=== PATIENT | female | born 1970 | race Caucasian/White ===

== ENCOUNTER → 2016-04-07 | Outpatient (CLI) | payer BC ==
[2014-09-17 07:00] VITALS: BP 119/72
[~2016-04-07] MED LIST: Fentanyl TD; LACT1CAP29 PO; LEVO50TA5 PO; LORA0.5T96 PO; Mouthwash PO; NAPR220T70 PO; NAPR550T2 PO; OMEP40CA5 PO; ONDA8TAB9 PO; OXYC-323 PO; PILO5TAB PO; [UNRECOGNIZED DRUG - CODE] PO; decadron
--- NOTE | 2016-04-07 16:43 | KCIC ---
PROCEDURE MRI right knee without contrast dated 04/07/2016. HISTORY Right knee pain and swelling for 2 months. TECHNIQUE Routine multiplanar multisequence MR imaging performed. COMPARISON none FINDINGS Mild tricompartmental hypertrophic change with thinning and surface irregularity of the articular cartilage throughout. Near full-thickness cartilage loss of the weightbearing surfaces medial femoral condyle and medial tibial plateau. Moderate cartilage thinning over the medial patellar facet and patellar apex. Moderate-sized joint effusion. No intra-articular loose body. No significant popliteal cyst. Anterior cruciate and posterior cruciate ligaments are intact. Medial and lateral collateral complexes are intact. Iliotibial band, popliteus tendon and pes anserine complex within normal limits. Quadriceps and patellar tendon are intact. Mild increased signal in the substance of the proximal and distal patellar tendon. Mild patchy prepatellar and superficial infrapatellar edema. No abnormality of the medial or lateral retinaculum. Focal free edge radial defects at the posterior horn medial meniscus, near the meniscal root and posterior horn/body junction. Medial meniscal body is slightly extruded and the medial gutter. Anterior horn is intact. Lateral meniscus is normal in morphology and signal. IMPRESSION - Free edge radial tearing posterior horn and body of medial meniscus. - Mild tricompartmental degenerative arthrosis and chondromalacia. There is near full thickness cartilage loss at the anterior and medial compartments. - Moderate size joint effusion. - Mild patellar tendinosis. - Intact cruciate and collateral ligaments. Electronically signed by: Connor Philip (Apr 07, 2016 16:42:20)
== END | disposition home or self-care (01) ==
LOC: KCIC MRI 15:41
DX: S83.241A Other tear of medial meniscus, current injury, right knee, initial encounter (principal); M17.11 Unilateral primary osteoarthritis, right knee; M94.261 Chondromalacia, right knee; M25.461 Effusion, right knee; M76.51 Patellar tendinitis, right knee; X58.XXXA Exposure to other specified factors, initial encounter; Y93.89 Activity, other specified; Y92.89 Other specified places as the place of occurrence of the external cause; Y99.8 Other external cause status
CPT/HCPCS: 73721

== ENCOUNTER → 2016-05-07 | Outpatient (CLI) | payer BC ==
[2014-09-17 07:00] VITALS: BP 119/72
[~2016-05-07] MED LIST changes: +MAG DELAY64 MG PO; -[UNRECOGNIZED DRUG - CODE] PO
[2016-05-07] MEDS: IOHEXOL 300 MG/ML 100ML VIAL. IV ONE (15:48)
--- NOTE | 2016-05-07 16:57 | KCIC ---
Examination: CT soft tissue neck with IV contrast. HISTORY History of tonsillar cancer, status post treatment. COMPARISON 12/20/2015. TECHNIQUE Axial CT images without tissue neck were performed with IV contrast. Coronal and sagittal reformats were performed Exposure: One or more of the following dose reduction technique were utilized for this examination: 1. Automated exposure control. 2.Adjustment of MA and /or KV according to patient size. 3. Use of iterative reconstruction technique. Findings: The visualized parapharyngeal spaces, dining room tables set up attendant spaces, parotid glands grossly appears unremarkable. No obvious mass identified in the region of the tonsils. The piriform sinuses, vallecula grossly appears unremarkable. The vocal cords grossly appears unremarkable.The visualized thyroid gland grossly appears unremarkable. No radiologically significant cervical lymphadenopathy identified. The right submandibular lymph node measuring 9 millimeters transverse dimension is similar to prior exam. The visualized apical lungs grossly appears unremarkable. No evidence of lytic bony destructive lesion identified. IMPRESSION No definite evidence of mass identified in the tonsillar region. No new obvious radiologically significant cervical lymphadenopathy identified. The previously visualized right submandibular lymph node measuring 9 millimeters in transverse dimension is similar to prior exam. Electronically signed by: Clayton Centeno (May 07, 2016 16:56:02)
== END | disposition home or self-care (01) ==
LOC: KCIC CT 15:14
PROVIDERS: ATTEND Radiology Radiation Oncology
DX: C09.9 Malignant neoplasm of tonsil, unspecified (principal)
CPT/HCPCS: 70491; Q9967

== ENCOUNTER → 2016-09-08 | Outpatient (CLI) | payer BC ==
[2014-09-17 07:00] VITALS: BP 119/72
[~2016-09-08] MED LIST changes: +NAPR-677 PO; -NAPR550T2 PO; -PILO5TAB PO; +PILO5TAB16 PO
--- NOTE | 2016-09-08 13:43 | KCIC ---
Bilateral digital screening mammograms: Reason for examination: Routine screening. Comparison is made to previous studies dated 06/27/2015 and 05/08/2014. The skin and nipples show no abnormalities. No abnormal lymph nodes are seen. The breast parenchyma is predominantly fatty. (Breast density: Category A.) There are no dominant masses, suspicious calcifications or architectural distortions. Impression: No evidence of malignancy. Recommend routine screening. BI-RADS Category 1: Negative. "Our facility is accredited by the [employer] Mammography [employer]." This patient's information has been entered into a reminder system for the patient to be notified with the results of her examination and a target date for the next mammogram. Electronically signed by: Julia Gandara MD (09/08/2016 1:39 PM)
== END | disposition home or self-care (01) ==
LOC: KCIC MAMMO 08:16
PROVIDERS: ATTEND Obstetrics & Gynecology
DX: Z12.31 Encounter for screening mammogram for malignant neoplasm of breast (principal)
CPT/HCPCS: G0202; 77067

== ENCOUNTER → 2016-09-08 | Outpatient (CLI) | payer BC ==
[2014-09-17 07:00] VITALS: BP 119/72
[~2016-09-08] MED LIST changes: +CONTRAST GIVEN MC PRN; +IOHEXOL 300 MG/ML 100ML VIAL. IV ONE
--- NOTE | 2016-09-08 09:36 | KCIC ---
CT SOFT TISSUE NECK W/CONTRAST dated 09/08/2016 8:30 AM Indication: Tonsillar cancer Comparison: 05/07/2016 and December 20, 2015 Technique: After bolus of intravenous contrast, CT imaging was performed of the neck. Multiplanar reconstruction images are submitted. One or more of the following individualized dose reduction techniques were utilized for this examination: 1. Automated exposure control 2. Adjustment of the mA and/or kV according to patient size 3. Use of iterative reconstruction technique. Contrast: 95 cc Omnipaque 300 Findings: No discrete tonsillar mass is identified by CT. Epiglottis is not thickened. There is preservation of parapharyngeal fat planes. No new significantly enlarged or necrotic nodes are identified of the neck. Right submandibular node on the order of 0.7 cm cm short axis dimension is similar. There is no asymmetry identified of the true or false cords. Paranasal sinuses and mastoid air cells are overall aerated. IMPRESSION: 1. No discrete tonsillar mass is identified by this exam. No significantly enlarged or necrotic nodes are identified of the neck. Electronically signed by: Elio Estevez MD (09/08/2016 9:32 AM)
== END | disposition home or self-care (01) ==
LOC: KCIC CT 08:22
PROVIDERS: ATTEND Radiology Radiation Oncology
DX: C09.0 Malignant neoplasm of tonsillar fossa (principal)
CPT/HCPCS: 70491; Q9967

== ENCOUNTER → 2017-04-02 | Outpatient (CLI) | payer BC ==
[2017-04-02] MEDS: IOHEXOL 300 MG/ML 100ML VIAL. IV (15:09)
== END | disposition home or self-care (01) ==
LOC: KCIC CT 14:48
DX: C09.9 Malignant neoplasm of tonsil, unspecified (principal); Z92.3 Personal history of irradiation; Z92.21 Personal history of antineoplastic chemotherapy
CPT/HCPCS: 70491; Q9967

== ENCOUNTER → 2017-09-23 | Outpatient (CLI) | payer BC | END | disposition home or self-care (01) | LOC: KCIC MAMMO 12:00 | DX: Z12.31 Encounter for screening mammogram for malignant neoplasm of breast (principal); E03.9 Hypothyroidism, unspecified; E66.9 Obesity, unspecified | CPT/HCPCS: 77067 ==

== ENCOUNTER → 2017-10-05 | Outpatient (CLI) | payer BC ==
[2017-10-05] MEDS: IOHEXOL 300 MG/ML 100ML VIAL. IV (08:56)
== END | disposition home or self-care (01) ==
LOC: KCIC CT 07:56
DX: C09.0 Malignant neoplasm of tonsillar fossa (principal); M47.892 Other spondylosis, cervical region; E03.9 Hypothyroidism, unspecified; Z85.72 Personal history of non-Hodgkin lymphomas; Z87.891 Personal history of nicotine dependence
CPT/HCPCS: 70491; Q9967

== ENCOUNTER → 2018-04-18 | Outpatient (CLI) | payer BC ==
[2014-09-17 07:00] VITALS: BP 119/72
[~2018-04-18] MED LIST changes: +BUSP15TA PO; -CONTRAST GIVEN MC PRN; -OXYC-323 PO; +OXYC1TAB15 PO; +RANI150T21 PO
--- NOTE | 2018-04-18 16:00 | KCIC ---
CT neck with contrast 04/18/2018 CLINICAL INDICATION: Tonsillar carcinoma, follow-up status post treatment. COMPARISON: CT neck 10/05/2016 TECHNIQUE: Multiple CT images of the neck were obtained following the intravenous administration of 95 mL Omnipaque 300. *One or more of the following individualized dose reduction techniques were utilized for this examination: 1. Automated exposure control. 2. Adjustment of the mA and/or kV according to patient size. 3. Use of iterative reconstruction technique. FINDINGS: The visualized intracranial structures, globes and orbits are unremarkable. The nasal cavity, nasopharynx, hypopharynx and larynx are unremarkable. The parotid, submandibular and thyroid glands are normal in appearance. The parapharyngeal fat is preserved. No cervical lymphadenopathy by CT size criteria. There are no destructive osseous lesions. IMPRESSION: No evidence of recurrent cervical mass or lymphadenopathy. Electronically signed by: Will Ochoa MD (04/18/2018 3:56 PM) [facility]
== END | disposition home or self-care (01) ==
LOC: KCIC CT 14:43
PROVIDERS: ATTEND Radiology Radiation Oncology
DX: Z08 Encounter for follow-up examination after completed treatment for malignant neoplasm (principal); Z85.818 Personal history of malignant neoplasm of other sites of lip, oral cavity, and pharynx
CPT/HCPCS: 70491; Q9967

== ENCOUNTER → 2018-10-13 | Outpatient (CLI) | payer BC ==
[2014-09-17 07:00] VITALS: BP 119/72
[~2018-10-13] MED LIST changes: -IOHEXOL 300 MG/ML 100ML VIAL. IV ONE; +RANI-376 PO; -RANI150T21 PO
--- NOTE | 2018-10-13 17:02 | KCIC ---
Bilateral digital screening mammograms: Reason for examination: Routine screening. Comparison is made to previous studies dated 09/23/2017 and 09/08/2016. Interpretation is made with the benefit of CAD. The skin and nipples show no abnormalities. No abnormal lymph nodes are seen. The breast parenchyma is predominantly fatty. (Breast density: Category A.) There are no dominant masses, suspicious calcifications or architectural distortions. Impression: No evidence of malignancy. Recommend routine screening. BI-RADS Category 1: Negative. "Our facility is accredited by the [employer] Mammography Program." This patient's information has been entered into a reminder system for the patient to be notified with the results of her examination and a target date for the next mammogram. Electronically signed by: Julia Gandara MD (10/13/2018 4:59 PM) [id number]
== END | disposition home or self-care (01) ==
LOC: KCIC MAMMO 15:40
PROVIDERS: ATTEND Obstetrics & Gynecology
DX: Z12.31 Encounter for screening mammogram for malignant neoplasm of breast (principal)
CPT/HCPCS: 77067

== ENCOUNTER → 2018-11-10 | Outpatient (CLI) | payer BC ==
[2014-09-17 07:00] VITALS: BP 119/72
[~2018-11-10] MED LIST changes: +ANTI-COAG MONITOR BY PHARMACY. MC PRN; +CONTRAST GIVEN. MC PRN; +IOHEXOL 300 MG/ML 100ML VIAL. IV ONE
--- NOTE | 2018-11-10 16:48 | RAD ---
CT SOFT TISSUE NECK W/CONTRAST Indication: Tonsillar cancer Technique: Postcontrast CT imaging was performed of the neck, multiplanar reconstruction images submitted. One or more of the following individualized dose reduction techniques were utilized for this examination: 1. Automated exposure control 2. Adjustment of the mA and/or kV according to patient size 3. Use of iterative reconstruction technique. Comparison: April 02, 2017 Findings: No new suspicious mass, fluid collection, lymphadenopathy is identified. Submandibular glands and parotid glands are unchanged in appearance. There is preservation of the parapharyngeal fat planes. There is no new focal abnormality identified of the tonsils, epiglottis, aryepiglottic folds, true or false cords, lung apices. There is degenerative disc disease and spondylosis C6-7. IMPRESSION: 1. No new abnormality is identified, no CT evidence of disease recurrence. Electronically signed by: Elio Estevez MD (11/10/2018 4:45 PM) [id number]
== END | disposition home or self-care (01) ==
LOC: KCIC CT 14:58
PROVIDERS: ATTEND Radiology Radiation Oncology
DX: C09.0 Malignant neoplasm of tonsillar fossa (principal); C77.0 Secondary and unspecified malignant neoplasm of lymph nodes of head, face and neck; M50.323 Other cervical disc degeneration at C6-C7 level; M47.812 Spondylosis without myelopathy or radiculopathy, cervical region
CPT/HCPCS: 70491; Q9967

== ENCOUNTER → 2018-11-28 | Outpatient (CLI) | payer BC ==
[2014-09-17 07:00] VITALS: BP 119/72
[~2018-11-28] MED LIST changes: -ANTI-COAG MONITOR BY PHARMACY. MC PRN; -CONTRAST GIVEN. MC PRN; -IOHEXOL 300 MG/ML 100ML VIAL. IV ONE
--- NOTE | 2018-11-30 15:26 | RESP ---
DATE OF SERVICE: 11/28/2018 PULMONARY FUNCTION TEST ATTENDING PHYSICIAN: Dr. Sorin English. The patient's FVC was 4.0, which is 105% predicted, FEV1 2.79 which is 92% predicted. The FEV1/FVC ratio was reduced. FEF 25-75 was 65% predicted. No bronchodilators given. Total lung capacity was increased and residual volume was increased. Diffusion capacity was increased as well. IMPRESSION: 1. Spirometry findings suggesting small airway dysfunction. 2. No bronchodilators given. 3. Lung volumes consistent with air trapping and hyperinflation. 4. Increased diffusion capacity. VIOLETTA MASSEY MD DR: LASHELL/maria elena JOB#: [id number] / [id number] SORIN Lopez MD
== END | disposition home or self-care (01) ==
LOC: PF 08:46
PROVIDERS: ATTEND Internal Medicine Cardiovascular Disease
DX: R06.00 Dyspnea, unspecified (principal)
CPT/HCPCS: 94010; 94726; 94729

== ENCOUNTER → 2019-01-09 | Outpatient (CLI) | payer BC ==
[2014-09-17 07:00] VITALS: BP 119/72
[~2019-01-09] MED LIST changes: +OMEP40CA45 PO; -OMEP40CA5 PO
--- NOTE | 2019-01-09 11:52 | RAD ---
MR#: [id number] Date of Study: 01/09/2019 Ordering Physician: SORIN ALBARRAN, Referring Physician: SORIN ALBARRAN, Tech: Juan Dias MBA, RDMS, RVT, RDCS, RTR APPROVED REPORT Patient Location : OUT-PATIENT Indications Lower Extremity Edema : Bilateral Findings Grayscale images of the bilateral saphenofemoral junctions are grossly unremarkable for any evidence of thrombus. The right great saphenous vein measures 5.4 mm in the left great saphenous vein measures 9.2 mm. No e vidence of reflux in the bilateral greater saphenous veins. The bilateral lesser saphenous veins do not show any evidence of reflux. Critical Notification Critical Value: No <Conclusion> No significant reflux in the bilateral lower extremities Signed by : Sorin Albarran, Electronically Approved : 01/09/2019 11:52:19
--- NOTE | 2019-01-09 11:54 | RAD ---
MR#: [id number] Date of Study: 01/09/2019 Ordering Physician: SORIN ALBARRAN, Referring Physician: SORIN ALBARRAN, Tech: Juan Dias MBA, RDMS, RVT, RDCS, RTR APPROVED REPORT Bilateral Lower Extremity Venous Study for DVT Patient Location: OUT-PATIENT Indications Lower Extremity Edema: Bilateral Vein Imaging (Right) CFV (R): Compressible SFJ (R): Compressible FEM (R): Compressible POP (R): Compressible DFV (R): Compressible PTV (R): Spontaneous GSV (R): Spontaneous Peroneals (R): Spontaneous Vein Imaging (Left) CFV (L): Compressible SFJ (L): Compressible FEM (L): Compressible POP (L): Compressible DFV (L): Compressible PTV (L): Spontaneous GSV (L): Spontaneous Peroneals (L): Spontaneous Doppler Evaluation (Right) CFV (R): Spontaneous POP (R):Spontaneous Doppler Evaluation (Left) CFV (L):Spontaneous POP (L):Spontaneous Findings The bilateral lower extremity deep veins were evaluated for thrombus with color Doppler, spectral and grayscale images. On the right the grayscale images of the common femoral, superficial femoral and popliteal veins do n ot demonstrate any evidence of thrombus and these veins appear to be compressible. The below-knee vei ns were not well visualized but grossly appear to be compressible. Spectral imaging and color Doppler do not reveal any evidence of obstruction to flow with normal respirophasic variation above the knee . Below the knee there is spontaneous flow noted. On the left, the grayscale images of the common femoral, superficial femoral and popliteal veins do n ot demonstrate any evidence of thrombus and these veins appear to be compressible. The below-knee vei ns again were not well visualized but grossly appear to be compressible. Spectral imaging and color D oppler do not reveal any evidence of obstruction to flow with normal respirophasic variation above th e knee. The below-knee veins demonstrate spontaneous flow. Technically difficult study Critical Notification Critical Value: No <Conclusion> No evidence of DVT in the BLE. Signed by : Sorin Albarran, Electronically Approved : 01/09/2019 11:53:54
--- NOTE | 2019-01-09 16:56 | CARD ---
MR#: [id number] Date of Study: 01/09/2019 Ordering Physician: SORIN ALBARRAN, Referring Physician: SORIN ALBARRAN, Tech: Katja Carreno APPROVED REPORT EXAM: Two-dimensional and M-mode echocardiogram with Doppler and color Doppler. Other Information Quality : AverageHR: 79bpm Technically limited study due to body habitus. INDICATION Hypertension/HCVD 2D DIMENSIONS RVDd2.6 (2.9-3.5cm)Left Atrium(2D)4.1 (1.6-4.0cm) IVSd0.6 (0.7-1.1cm)Aortic Root(2D)2.4 (2.0-3.7cm) LVDd5.7 (3.9-5.9cm)LVOT Diameter2.1 (1.8-2.4cm) PWd0.7 (0.7-1.1cm)LVDs4.1 (2.5-4.0cm) FS (%) 27.3 %SV84.1 ml Aortic Valve AoV Peak Art.111.2cm/sAoV VTI22.2cm AO Peak GR.4.9mmHgLVOT Peak Art.64.1cm/s AO Mean GR.3mmHgAVA (VMAX)2.06cm2 Mitral Valve MV E Ypwsxsiy34.6cm/sMV E Peak Gr.2mmHg MV DECEL [id number] A Jvspmhnc56.0cm/s MV E Mean Gr.1mmHgE/A Ratio0.9 Pulmonary Valve PV Peak Jioluvji53.9cm/s Pulmonary Vein S1 Rzyqewwz52.0cm/sD2 Vibroixt94.9cm/s LEFT VENTRICLE The left ventricle is normal size. There is normal left ventricular wall thickness. The left ventricu lar systolic function is normal and the ejection fraction is within normal range. The Ejection Fracti on is 55-60%. There is normal LV segmental wall motion. Transmitral Doppler flow pattern is Grade I-a bnormal relaxation pattern. RIGHT VENTRICLE The right ventricle is normal size. There is normal right ventricular wall thickness. The right ventr icular systolic function is normal. ATRIA The left atrium size is normal. The right atrium size is normal. The interatrial septum is intact wit h no evidence for an atrial septal defect or patent foramen ovale as noted on 2-D or Doppler imaging. AORTIC VALVE The aortic valve is normal in structure and function. Doppler and Color Flow revealed no significant aortic regurgitation. There is no significant aortic valvular stenosis. MITRAL VALVE The mitral valve is normal in structure and function. There is no evidence of mitral valve prolapse. There is no mitral valve stenosis. Doppler and Color-flow revealed trace mitral regurgitation. TRICUSPID VALVE The tricuspid valve is normal in structure and function. Doppler and Color Flow revealed trace tricus pid regurgitation. There is no tricuspid valve stenosis. PULMONIC VALVE The pulmonic valve is not well visualized. Doppler and Color Flow revealed no pulmonic valvular regur gitation. GREAT VESSELS The aortic root is normal in size. The IVC is normal in size and collapses >50% with inspiration. PERICARDIAL EFFUSION There is no evidence of significant pericardial effusion. Critical Notification Critical Value: No <Conclusion> The left ventricle is normal size. The left ventricular systolic function is normal and the ejection fraction is within normal range. The Ejection Fraction is 55-60%. There is no significant aortic valvular stenosis. Doppler and Color Flow revealed no significant aortic regurgitation. Doppler and Color-flow revealed trace mitral regurgitation. Doppler and Color Flow revealed trace tricuspid regurgitation. Signed by : Stuart Palomo MD Electronically Approved : 01/09/2019 16:55:55
== END | disposition home or self-care (01) ==
LOC: US 07:50
PROVIDERS: ATTEND Internal Medicine Cardiovascular Disease
DX: R60.0 Localized edema (principal); I10 Essential (primary) hypertension
CPT/HCPCS: 93306; 93970

== ENCOUNTER → 2019-11-23 | Outpatient (CLI) | payer BC ==
[2014-09-17 07:00] VITALS: BP 119/72
--- NOTE | 2019-11-24 17:19 | KCIC ---
BILATERAL SCREENING MAMMOGRAM History: Routine screening. Comparison: Bilateral mammogram October 13, 2018. Technique: Routine bilateral digital mammogram views were obtained. Findings: Breast Tissue Density A : The breasts are almost entirely fatty. There are no dominant masses, suspicious microcalcifications, or architectural distortion. IMPRESSION: No mammographic evidence of malignancy. Recommend routine screening. BI-RADS category 1: Negative. The images were reviewed with computer aided detection. Patient information is entered into the reminder system with a target due date for the next screening mammogram. Mammography is the most sensitive method for finding small breast cancers, but it does not detect them all and is not a substitute for careful clinical examination. A negative mammogram does not negate a clinically suspicious finding and should not result in delay in biopsying a clinically suspicious abnormality. "Our facility is accredited by the [employer] Mammography Program." Electronically signed by: Leonardo Cardoza MD (11/24/2019 5:16 PM) [email or web address]
== END | disposition home or self-care (01) ==
LOC: KCIC MAMMO 15:32
PROVIDERS: ATTEND Obstetrics & Gynecology
DX: Z12.31 Encounter for screening mammogram for malignant neoplasm of breast (principal)
CPT/HCPCS: 77067

== ENCOUNTER → 2021-02-25 | Outpatient (CLI) | payer BC ==
[2014-09-17 07:00] VITALS: BP 119/72
[~2021-02-25] MED LIST changes: -LACT1CAP29 PO; +LACT1CAP37 PO; -OMEP40CA45 PO; +OMEP40CA7 PO
--- NOTE | 2021-02-25 16:23 | KCIC ---
Bilateral digital screening mammograms: Reason for examination: Routine screening. Comparison is made to previous studies dated back to 06/27/2015. Interpretation is made with the benefit of CAD. The skin and nipples show no abnormalities. No abnormal lymph nodes are seen. The breast parenchyma i s predominantly fatty. (Breast density: Category A.) There are no dominant masses, suspicious calcifi cations or architectural distortions. Impression: No evidence of malignancy. Recommend routine screening. BI-RADS Category 1: Negative. "Our facility is accredited by the [employer] Mammography [employer]." This patient's information has been entered into a reminder system for the patient to be notified wit h the results of her examination and a target date for the next mammogram. Electronically signed by: Julia Gandara MD (02/25/2021 4:21 PM) [email or web address]
== END ==
LOC: KCIC MAMMO 15:21
PROVIDERS: ATTEND Obstetrics & Gynecology
DX: Z12.31 Encounter for screening mammogram for malignant neoplasm of breast (principal)
CPT/HCPCS: 77067